=== PATIENT | male | born 1960 | race Caucasian/White ===

== ENCOUNTER 2019-07-16 22:58 | Emergency (ER) | payer OTHER ==
[2019-07-16] MEDS ORDERED: IBUPROFEN 200 MG TAB PO ONE (23:17)
--- NOTE | 2019-07-16 23:19 | ED.PDOC ---
History of Present Illness - General Chief Complaint: Fever Stated Complaint: fever, lethargy Time Seen by Provider: 07/16/19 23:14 Source: patient, RN notes reviewed, Vital Signs reviewed Exam Limitations: no limitations - History of Present Illness Initial Comments: 59 yo male with 2 day h/o fever and body aches. States he has had fever to 100.4 at home and body aches and 2 episodes of diarrhea today. Denies MO, neck stiffness, nausea, vomiting or abdominal pain. No cough or sore throat. he has not taken anything for fever or pain at home. States he was googling his symptoms tonight and it said he might have the Flu, so came to ED to be checked. Review of Systems - Review of Systems Constitutional: States: fever. Denies: chills, weakness EENTM: Denies: ear pain, nose congestion, throat pain Respiratory: Denies: cough, short of breath, wheezing Cardiology: Denies: chest pain, palpitations, syncope Gastrointestinal/Abdominal: States: diarrhea. Denies: abdominal pain, nausea, vomiting Musculoskeletal: States: muscle pain. Denies: back pain, neck pain Skin: Denies: dryness, rash All other Systems: Reviewed and Negative Family Medical History - Family History Father Family History: Unknown Physical Exam - Physical Exam General Appearance: Alert, Comfortable, No apparent distress ENT Exam: TMs normal, pharynx normal Neck: non-tender, full range of motion, supple Respiratory: chest non-tender, lungs clear, normal breath sounds, no respiratory distress Cardiovascular/Chest: regular rate, rhythm, no murmur Gastrointestinal/Abdominal: non tender, soft, no pulsatile mass Extremity: non-tender, normal inspection, no calf tenderness Neurologic: no motor/sensory deficits, alert, normal mood/affect Skin Exam: normal color, warm/dry Progress - Progress Progress: 07/17/19 00:15 Influenza A and B negative Pt presents with fever of 100 and body aches for 2 days. He is nontoxic appearing with no respiratory distress. Flu negative. Lungs are clear. No abd pain, NV. No sign of dehydration. Discussed symptomatic treatment with Tylenol, Motrin, increase po fluids and rrest. Will f/u with PCP in 1-2 days for recheck. SRP given. Departure - Departure Clinical Impression: Viral syndrome Time of Disposition: 00:14 Disposition: Discharge to Home or Self Care Condition: Fair Departure Forms: ED Discharge - Pt. Copy, Patient Portal Self Enrollment Instructions: DI for Fever (Symptom) -- Adult Diet: resume usual diet Activity: increase activity as tolerated Additional Instructions: Follow up with PCP in 1-2 days for recheck.
[2019-07-16 23:20] VITALS: TEMP 99.7; O2SAT 96
[2019-07-17 00:01] VITALS: BP 126/60
== END 2019-07-17 00:17 | disposition home or self-care (01) ==
LOC: EDBD 22:58 → ER 22:58
DX: B34.9 Viral infection, unspecified (principal)